=== PATIENT | male | born 1955 | race Caucasian/White ===

== ENCOUNTER 2019-08-15 17:52 | Outpatient (CLI) | payer MEDICARE, SELFPAY ==
--- NOTE | 2019-08-15 | XR_ITS ---
WS: [id number] LEFT HIP HISTORY: BACK PAIN ACUTE COMPARISON: None available. LEFT hip: No acute fracture or dislocation. Mild osteophytic ridging and sclerosis with irregularity along the superior acetabulum. No bone destruction. Visualized LEFT SI joint demonstrates mild narrowing. XR/XR hip LT 2-3V wo/w pel* [id number] IMPRESSION: 1. No hip fracture. 2. Mild osteoarthritis LEFT hip.
--- NOTE | 2019-08-15 | XR_ITS ---
WS: [id number] LUMBAR SPINE: 3 VIEWS TECHNIQUE: AP, lateral and L5-S1 spot. HISTORY: BACK PAIN ACUTE COMPARISON: 02/15/2016 Lumbar vertebra are normally aligned. Moderate disc space narrowing at L4-5 and mild at L5-S1. Small endplate osteophytes with no fracture. Pedicles are all identified. SI joints are symmetric bilaterally. No soft tissue abnormalities. XR/XR lumbar spine 2-3V* [id number] IMPRESSION: 1. Moderate degenerative disc disease at L4-5. 2. Mild multilevel spondylosis. 3. No change since 02/15/2016.
== END 2019-08-15 17:53 | disposition home or self-care (01) ==
PROVIDERS: Family Provider Family Medicine; Visit Provider Nurse Practitioner Family
DX: Z76.89 Persons encountering health services in other specified circumstances (principal)

== ENCOUNTER 2020-06-18 18:42 | Emergency (ER) | payer MEDICARE, SELFPAY ==
[2020-06-18 18:43] VITALS: BP 122/75; PULSE 72; RESP 18; TEMP 36.6; O2SAT 96; BMI 28.6
--- NOTE | 2020-06-18 19:00 | XR_ITS ---
WS: [id number] XR finger LT min 2V [id number] REASON FOR EXAM: finger injury, left 2nd digit FINDINGS: Joint spaces are intact. Minimally displaced fracture that extends obliquely through the tuft of the distal phalanx of the fir st finger. No other significant abnormality. XR/XR finger LT min 2V [id number] IMPRESSION: Fracture of the left index finger as above.
[2020-06-18] MEDS: lidocaine 1% INJ 20 mL INJECTION (19:04)
--- NOTE | 2020-06-18 19:20 | ED_ITS ---
HPI - Wound/Laceration General: Chief Complaint: Wound/Laceration Stated Complaint: LEFT INDEX FINGER LAC Time Seen by Provider: 06/18/20 19:00 Source: patient Mode of arrival: ambulatory Limitations: no limitations History of Present Illness: HPI narrative: 64 year old male presents to the ED with c/o left index finger pain s/p smash injury - reports smashed finger b/t 2 boards while repairing a deck - sustained laceration. States took oxycodone prior to arrival to help with pain, pressure dressing applied and bleeding controlled upon exam. Place: home Patient tetanus UTD: Yes Context: accidental Associated symptoms: Reports numbness; Denies chills, fever(s), nausea or vomiting Treatments prior to arrival: bandage Review of Systems General: Reports: 10 or more systems reviewed and unremarkable except in HPI and below Const: Denies: fever(s), chills or diaphoresis Eyes: Denies: blurry vision or eye redness ENMT: Denies: throat pain, dental pain or disequilibrium Card: Denies: chest pain, palpitations or irregular heart rhythm Resp: Denies: dyspnea, productive cough, non-productive cough or wheezing GI: Denies: abdominal pain, nausea or vomiting : Denies: difficulty urinating, dysuria or urinary urgency Musc: Reports: joint swelling (distal tip lft index finger); Denies: neck pain, back pain, joint pain or muscle cramps Skin/Breast: Reports: other (laceration distal tip left index finger); Denies: rash, pruritus, changing lesions or changes in skin color Neuro: Denies: headache(s), weakness in extremities or behavioral changes Psych: Denies: anxiety or depression Jewel/Lymph: Denies: easy bruising Physical Exam Const: COMMON NORMALS: no acute distress, patient oriented x3, healthy appearing and alert GENERAL APPEARANCE: cooperative, comfortable and well hydrated HENMT: COMMON NORMALS: normocephalic, Normal external nose present and moist oral mucous membranes HEAD & SCALP: normocephalic NOSE: Normal external n ose present Eye: COMMON NORMALS: Equal, round and reactive pupils present and EOMs intact bilaterally GENERAL EYE: appearance normal, both eyes and all related structures PUPIL: Yes Equal, round and reactive pupils present Neck/C-Spine: COMMON NORMALS: full ROM and no lymphadenopathy GENERAL: Yes normal visual inspection and Yes trachea midline CERVICAL SPINE: Yes cervical ROM normal Lymph: LYMPHATIC: no lymphadenopathy noted Chest: COMMONS NORMALS: normal inspection of the chest Resp: COMMON NORMALS: normal respiratory effort and clear to auscultation bilaterally AUSCULTATION: clear to auscultation bilaterally Cardio: COMMON NORMALS: regular rhythm, S1 normal heart sound present and S2 normal heart sound present RHYTHM: regular rhythm HEART SOUNDS: S1 normal heart sound present and S2 normal heart sound present GI: COMMON NORMALS: Soft to palpation and non-tender INSPECTION: Yes normal to inspection PALPATION: Yes Soft to palpation : COMMON NORMALS: Yes no CVA tenderness BLADDER/KIDNEY EXAM: Yes no CVA tenderness Back/Pelvis: COMMON NORMALS: no CVA tenderness and thoracic and lumbar spine normal to inspection Extremity: COMMON NORMALS: normal to inspection, full ROM and capillary refill normal GENERAL: Yes normal exam except as noted LEFT UPPER EXTREMITY: Yes hand & digits (left index, 2nd PIP) Left hand and digits: Yes inspection (laceration x 2 to the left index, 2nd finger, 1.0 cm ulnar side, distal PIP), Y es palpation (pain with palpation, ulnar side laceration involves paronychium), Yes ROM (present), Yes neurovascular exam (distally intact), Yes tendon exam (intact, full flexion/extension) and Yes other (2nd abrasion to the volar PIP, no bleeding, edges approximated) Neuro: COMMON NORMALS: patient oriented x3 and no focal motor deficits SENSORIUM/ORIENTATION: Yes alert Psych: COMMON NORMALS: mental status grossly normal, Normal thought process present and cooperative ACTIVITY/MOTOR BEHAVIOR: Yes appropriate eye contact THOUGHT PROCESS: Normal thought process present Skin: COMMON NORMALS: no rashes or lesions noted and turgor normal GENERAL SKIN EXAM: no rashes or lesions noted and turgor normal Procedures Laceration Laceration 1: Site: upper extremity (left index, 2nd finger) Side (If applicable): left Size (cm): 1.0 Description: linear, contaminated and other (contused) Depth: simple, single layer Pre-repair: wound explored, irrigated extensively, deep structures intact, extensive debridement and wound margins revised Skin layer closed with: nylon Size (cm): 5-0 Number of sutures: 2 Nerve Block Nerve Block 1: Time out performed: Yes Local Anesthetic: lidocaine 1% Amount of anesthesia used (mL): 10 Side: left Nerve Blocks: digital (left index, 2nd digit) Procedure Successful: Yes Patient Tolerated Procedure: well Complications: none Course Vital Signs: Vital signs: Vital Signs Temperature 97.8 F 06/18/20 18:43 Pulse Rate 72 06/18/20 18:43 Respiratory Rate 18 06/18/20 18:43 Blood Pressure 122/75 06/18/20 18:43 Pulse Oximetry 96 06/18/20 18:43 MDM - Wound/Laceration Imaging Data^: Xray Ortho: My impression: left hand second digit, distal tip, 3rd PIP, non-displaced fracture - radiology inturp pending Discharge Plan Discharge Patient Disposition: Home Clinical Impression: Crush fracture Laceration of finger nail bed Qualifiers: Encounter type: initial encounter Qualified Code(s): S61.319A - Laceration wit hout foreign body of unspecified finger with damage to nail, initial encounter Crush injury to finger Qualifiers: Encounter type: initial encounter Qualified Code(s): S67.10XA - Crushing injury of unspecified finger(s), initial encounter Condition: Stable Prescriptions: New Augmentin 875-125 mg tablet 1 tab PO BID 7 Days Qty: 14 RF: 0 Discharge Orders: Discharge ED (Routine); Ordered 06/18/20 Ordered By: Monie Singer Referrals: Sharri Victor MD [Primary Care Provider] - Discharge Diet: Usual diet Discharge Activity: Limit activity as instructed Patient Instructions: Crush Injury, Finger Fracture (ED), Finger Laceration (ED) Activity Restrictions/Additional Instructions: Return to the emergency department if you develop redness, increased pain or foul odor from the wound Take Augmentin until all gone, even if better Keep the left hand elevated to help with swelling, do not remove the dressing until follow-up with orthopedic surgery for wound recheck Take pain medication you have at home for pain, oxycodone patient financial services coordinator will be contacting you with an appointment to orthopedic surgery, please follow-up accordingly, sutures out in 7 to 10 days. Coding Level of Care Code ED Printer Assistant for Emily Fwarely Exam Comprehensive
[2020-06-18] MEDS: amoxicillin-clav 875-125 mg Tablet 1 TAB PO (20:00)
--- NOTE | 2020-06-19 09:52 | DCPLANNER ---
hotel office manager had message to schedule a follow up appointment for patient with ortho. hotel office manager called the ortho clinic, spoke with Ingrid, gave clinic patients information. hotel office manager was told that patients information would be printed and reviewed. Clinic will call patient with appointment information.
--- NOTE | 2020-06-20 15:16 | DCPLANNER ---
Patient has a follow up appointment scheduled for Saturday, June 27, 2020 at 1:[address] Nichols. Clinic will call patient with appointment information.
--- NOTE | 2020-07-27 14:24 | DCPLANNER ---
Patient had a follow up appointment scheduled for 06.27.20 with ortho - patient did attend appointment.
== END 2020-06-18 20:09 | disposition home or self-care (01) ==
PROVIDERS: Emergency Provider Nurse Practitioner Family; PCP Family Medicine
DX: S62.643A Nondisplaced fracture of proximal phalanx of left middle finger, initial encounter for closed fracture (principal); S61.319A Laceration without foreign body of unspecified finger with damage to nail, initial encounter; S67.10XA Crushing injury of unspecified finger(s), initial encounter; W23.0XXA Caught, crushed, jammed, or pinched between moving objects, initial encounter
CPT/HCPCS: 12001; 12345; 73140; 99281; 99283

== ENCOUNTER → 2020-06-27 13:35 | Outpatient (BNVA) | payer MEDICARE, SELFPAY | PROVIDERS: PCP Family Medicine; Visit Provider Specialist | DX: S62.631B Displaced fracture of distal phalanx of left index finger, initial encounter for open fracture (principal); W23.0XXA Caught, crushed, jammed, or pinched between moving objects, initial encounter | CPT/HCPCS: 73140 ==

== ENCOUNTER → 2020-07-23 15:34 | Outpatient (BNVA) | payer MEDICARE, SELFPAY | PROVIDERS: PCP Family Medicine; Visit Provider Podiatrist Foot & Ankle Surgery | DX: Q82.8 Other specified congenital malformations of skin (principal); M79.672 Pain in left foot; M20.41 Other hammer toe(s) (acquired), right foot; M20.42 Other hammer toe(s) (acquired), left foot; M21.621 Bunionette of right foot; M21.622 Bunionette of left foot | CPT/HCPCS: 73630 ==

== ENCOUNTER 2021-04-16 12:29 | Outpatient (CLI) | payer MEDICARE, SELFPAY ==
--- NOTE | 2021-04-16 12:40 | XR_ITS ---
WS: [id number] XR shoulder RT min 2V* [id number] REASON FOR EXAM: R SHOULDER PAIN/FALL FINDINGS: Moderate narrowing of the acromioclavicular joint space with subchondral sclerosis and osteophytic sp urring of the acromion and clavicle. Is soft tissue bone density projected over the superior aspect o f the acromioclavicular joint most likely related to the arthropathy in the acromioclavicular joint. Mild narrowing of the glenohumeral joint with mild subchondral sclerosis and spurring of the glenoid. Humeral head osteophytic spurring. No fracture or other focal bone abnormality. XR/XR shoulder RT min 2V* [id number] IMPRESSION: Osteoarthropathy with no acute abnormality.
--- NOTE | 2021-04-16 12:40 | XR_ITS ---
WS: [id number] XR cervical spine 3V* [id number] REASON FOR EXAM: NECK PAIN/FELL OUT OF TUB FINDINGS: Anterior plate and screw fixation with interbody fusion of C5-C7. Normal alignment. Surgical appliance intact and in proper position and alignment. Moderate anterior inferior osteophytes at C3-C4 and C4-C5 with no significant narrowing of the disc s paces. Normal facet joint alignment. Normal odontoid. XR/XR cervical spine 3V* [id number] IMPRESSION: Postoperative cervical spine with no acute abnormality.
== END 2021-04-16 12:30 | disposition home or self-care (01) ==
PROVIDERS: PCP Family Medicine; Visit Provider Family Medicine
DX: M54.2 Cervicalgia (principal); M19.011 Primary osteoarthritis, right shoulder; W18.09XA Striking against other object with subsequent fall, initial encounter
CPT/HCPCS: 72040; 73030

== ENCOUNTER 2021-05-18 10:32 | Emergency (ER) | payer MEDICARE, SELFPAY ==
[2021-05-18 10:54] VITALS: BP 136/89; PULSE 84; RESP 15; TEMP 36.9; O2SAT 95; BMI 29.0
--- NOTE | 2021-05-18 11:05 | CTR_ITS ---
PROCEDURE INFORMATION: Exam: CT Thoracic Spine Without Contrast Exam date and time: 05/18/2021 11:05 AM Age: 65 years old Clinical indication: Injury or trauma; Fall; Blunt trauma (contusions or hematomas) TECHNIQUE: Imaging protocol: Computed tomography images of the thoracic spine without contrast. Axial, coronal and sagittal reformatted images were created and reviewed. Radiation optimization: All CT scans at this facility use at least one of these dose optimization techniques: automated exposure control; mA and/or kV adjustment per patient size (includes targeted exams where dose is matched to clinical indication); or iterative reconstruction. COMPARISON: CT cervical spin wo con* [id number] 05/18/2021 11:28 AM RADIATION DOSE METRICS: Total DLP (mGy-cm): 2207.39 FINDINGS: Vertebrae: Osteopenia. Normal thoracic kyphosis. Alignment anatomic. No CT evidence of acute fracture, dislocation or subluxation. Vertebral body heights maintained. Discs/Spinal canal/Neural foramina: Mild multilevel spondylosis. Mild neural foraminal narrowing at T1-T2, T2-T3 and T3-T4 on the right. No significant spinal stenosis. Soft tissues: Unremarkable. CT/CT thoracic spin wo con* [id number]: 1[address] No [address] evidence of acute thoracic spine traumatic injury. 2. Additional findings, as above. Radiation Dose CTDIVOL = (mGy): DLP = 2207.39 (mGy-cm)
--- NOTE | 2021-05-18 11:06 | CTR_ITS ---
PROCEDURE INFORMATION: Exam: CT Cervical Spine Without Contrast Exam date and time: 05/18/2021 11:06 AM Age: 65 years old Clinical indication: Injury or trauma; Fall; Blunt trauma; Prior surgery; Surgery type: Neck TECHNIQUE: Imaging protocol: Computed tomography images of the cervical spine without contrast. Axial, coronal and sagittal reformatted images were created and reviewed. Radiation optimization: All CT scans at this facility use at least one of these dose optimization techniques: automated exposure control; mA and/or kV adjustment per patient size (includes targeted exams where dose is matched to clinical indication); or iterative reconstruction. COMPARISON: MRI Cervical Spine w/o* [id number] 06/05/2015 10:50 AM RADIATION DOSE METRICS: Total DLP (mGy-cm): 667.18 FINDINGS: Bones/joints: Osteopenia. Status post C5-C7 ACDF. No evidence of hardware complication. Straightening of the normal cervical lordosis. No CT evidence of acute fracture, dislocation or subluxation. Alignment anatomic. Vertebral body heights maintained. Discs/Spinal canal/Neural foramina: Mild multilevel degenerative changes, characterized by disc space narrowing, osteophytosis and uncovertebral and facet joint hypertrophy. Mild multilevel spinal canal and neural foraminal narrowing. Lungs: Grossly unremarkable. Soft tissues: Grossly unremarkable. CT/CT cervical spin wo con* [id number]: 1[address] No CT evidence of acute cervical spine traumatic injury. 2. Additional findings, as above. Radiation Dose CTDIVOL = (mGy): DLP = 667.18 (mGy-cm)
--- NOTE | 2021-05-18 11:06 | CTR_ITS ---
PROCEDURE INFORMATION: Exam: CT Head Without Contrast Exam date and time: 05/18/2021 11:06 AM Age: 65 years old Clinical indication: Injury or trauma; Fall; Blunt trauma (contusions or hematomas) TECHNIQUE: Imaging protocol: Computed tomography of the head without contrast. Axial, coronal and sagittal reformatted images were created and reviewed. Radiation optimization: All CT scans at this facility use at least one of these dose optimization techniques: automated exposure control; mA and/or kV adjustment per patient size (includes targeted exams where dose is matched to clinical indication); or iterative reconstruction. COMPARISON: MRI Cervical Spine w/o* [id number] 06/05/2015 10:50 AM RADIATION DOSE METRICS: Total DLP (mGy-cm): 886.83 FINDINGS: Brain: Patchy areas of hypoattenuation in the periventricular and subcortical white matter, consistent with chronic small vessel ischemic disease. No CT evidence of acute intracranial hemorrhage or acute territorial infarction. No significant mass effect or midline shift. Basal cisterns patent. Cerebral ventricles: Prominence of the cortical sulci, cisterns and ventricular system, consistent with cerebral and cerebellar volume loss. Paranasal sinuses: Minimal ethmoid mucosal thickening. No fluid levels. Mastoid air cells: Grossly unremarkable. Vasculature: Calcific atherosclerotic disease in the cavernous internal carotid arteries. Bones/joints: No acute osseous abnormality. Soft tissues: Grossly unremarkable. CT/CT head wo con* [id number]: 1[address] No CT evidence of acute intracranial pathology. 2. Additional findings, as above. Radiation Dose CTDIVOL = (mGy): DLP = 886.83 (mGy-cm)
[2021-05-18 11:07] VITALS: BP 136/89; PULSE 84; RESP 15; TEMP 36.9; O2SAT 95
--- NOTE | 2021-05-18 11:07 | W.ED.FALL ---
HPI - Fall General: Chief Complaint: Head Injury Stated Complaint: Injury to head from object Time Seen by Provider: 05/18/21 10:59 History of Present Illness: HPI Narrative: 65-year-old male presents due to headache and neck pain and upper back pain after head injury. States that he was using machinery to take through the ground and it lunged him forward and he bumped his head. Reports headache neck pain and upper back pain as above. Denies any focal weakness numbness or tingling. He is not blood thinners. Denies any vision change hearing change or vertigo. Denies any urinary fecal incontinence or retention. Denies saddle anesthesia. Review of Systems Narrative: - CONSTITUTIONAL: Denies weight loss, fever and chills. - HEENT: Denies changes in vision and hearing. - RESPIRATORY: Denies SOB and cough. - CV: Denies palpitations and CP. - GI: Denies abdominal pain, nausea, vomiting and diarrhea. - : Denies dysuria and urinary frequency. - MSK: Denies myalgia and joint pain. - SKIN: Denies rash and pruritus. - NEUROLOGICAL: Denies weakness, numbness and syncope. - PSYCHIATRIC: Denies suicidal ideation [facility] ED PFSH: Medical History Diabetes Hernia of abdominal wall Hypertension Surgical History H/O lumbosacral spine surgery Social History Smoking and tobacco status: never smoked Quit status (tobacco): considering quitting Second hand smoke exposure: No Smoking risk assessment/counseling performed?: No Alcohol intake: former Desire information about alcohol rehabilitation?: No Counseling given: No Desire information about substance/drug rehabilitation?: No Counseling given: No Adopted: No Caregiver/support person: No Lives independently: Yes Household members: spouse Housing: Manufactured/Mobile home Marital status: Number of children: 2 Number of grandchildren: 0 Highest education level completed: 11th Grade service: No Current occupational status: employed Current occupation: [employer] Current occupational exposures/hazards: Yes Pets and animals: Yes History of recent travel: No Leisure activites: sports, hunting, fishing and reading Sexually active: Yes Current gender identity: Male Yusra/Scientology: Evangelical Special yusra needs: No Agree to transfusion: Yes Financial difficulty paying for basics: Decline to Answer Physical Exam Narrative: EXAM NARRATIVE: - GENERAL: Alert and oriented x 3. No acute distress. Well-nourished. - EYES: EOMI. Anicteric. - HENT: C-spine tenderness, and collar. Moist mucous membranes. No scleral icterus. No cervical lymphadenopathy. 3 cm posterior scalp laceration. - LUNGS: Clear to auscultation bilaterally. No accessory muscle use. Equal lung sounds bilaterally. No respiratory distress. - CARDIOVASCULAR: Regular rate and rhythm. No murmur. No JVD. - ABDOMEN: Soft, non-tender and non-distended. Negative CVA tenderness bilaterally, no rebound or guarding, negative Allen sign. No palpable masses. - EXTREMITIES: No edema. Non-tender. -Back: Midline upper thoracic tenderness to palpation without step-off. Lower extremity strength sensation reflexes intact. No saddle anesthesia. - SKIN: No rashes or lesions. Warm. - NEUROLOGIC: No meningismus or focal neurological deficits. CN II-XII grossly intact. - PSYCHIATRIC: Cooperative. Appropriate mood and affect. Course Vital Signs: Vital signs: Vital Signs Temperature 98.5 F 05/18/21 11:07 Pulse Rate 84 05/18/21 11:07 Respiratory Rate 15 05/18/21 11:07 Blood Pressure 136/89 05/18/21 11:07 Pulse Oximetry 95 05/18/21 11:07 MDM - Fall MDM Narrative: Medical decision making narrative: Six 5-year-old male presents with 2 head injury headache and neck and upper back pain. Nonfocal neurologic exam. CT scan does not reveal intracranial hemorrhage fracture dislocation. No other focal tenderness except as above. Tetanus status was checked and is up-to-date. There is a posterior scalp laceration which was repaired using [place]. Wound care instructions provided. At this time I believe patient would be safe for discharge and outpatient follow-up. Return precautions provided. Plan was reviewed with the patient who expressed understanding. Questions answered. Patient will follow up with PCP. Patient discharged in stable condition. Discharge Plan Discharge Prescriptions: No Action No Known Home Medications RF: 0 Coding Level of Care Code ED Sulfur Burner for Emily Bernal
--- NOTE | 2021-05-18 11:25 | PC.NURSE ---
report received from andres souza [facility]
--- NOTE | 2021-05-18 11:34 | PC.NURSE ---
while at doorway pt and stretcher are not in room.
[2021-05-18 13:28] VITALS: BP 122/78; PULSE 82; RESP 16; O2SAT 96
== END 2021-05-18 13:30 | disposition home or self-care (01) ==
PROVIDERS: Emergency Provider Emergency Medicine; PCP Family Medicine
DX: S09.90XA Unspecified injury of head, initial encounter (principal); M54.2 Cervicalgia; M54.6 Pain in thoracic spine; E11.9 Type 2 diabetes mellitus without complications; I10 Essential (primary) hypertension; W22.8XXA Striking against or struck by other objects, initial encounter
CPT/HCPCS: 70450; 72125; 72128; 99283

== ENCOUNTER 2022-02-10 09:03 | Outpatient (CLI) | payer MEDICARE, SELFPAY ==
--- NOTE | 2022-02-10 09:10 | XR_ITS ---
WS: [id number] RIGHT SHOULDER: 3 VIEW(S) TECHNIQUE: Internal and external rotation with Y view. HISTORY: PAIN IN R SHOULDER COMPARISON: 04/16/2021 Moderate narrowing of the AC joint with hypertrophic osteophytes and subchondral sclerosis. Osteophyt es measure 4.4 mm extending towards the rotator cuff. There similar to the prior study. Mild narrowing of the glenohumeral joint. No fractures. XR/XR shoulder RT min 2V* [id number] IMPRESSION: 1. Moderate AC joint arthritis similar to the prior study. 2. No fracture.
== END 2022-02-10 09:04 | disposition home or self-care (01) ==
PROVIDERS: PCP Family Medicine; Visit Provider Family Medicine
DX: M13.811 Other specified arthritis, right shoulder (principal)
CPT/HCPCS: 73030

== ENCOUNTER 2022-03-26 07:13 | Outpatient (CLI) | payer MEDICARE, SELFPAY ==
--- NOTE | 2022-03-26 | MR_ITS ---
WS: [id number] MRI RIGHT SHOULDER HISTORY: RT SHOULDER PAIN COMPARISON: 02/10/2022 shoulder radiograph TECHNIQUE: Multiplanar sequences of the shoulder joint are submitted. Moderate to severe osteoarthritis involving the AC joint. Hypertrophic bone formation and osteophytes at the clavicle and acromion. Osteophytes encroach towards the supraspinatus myotendinous insertion with deformity of the muscle. Fluid along the AC ligament and a very small amount of fluid in the sub acromial bursa. No significant subacromial impingement. No os acromion. Normal biceps tendon. No rotator cuff tear identified. No muscle atrophy or edema. Very minimal tendinopathy in the distal supraspinatus tendon and also at the insertion site of the subscapularis tendon. Mild thickening of t he subscapularis tendon at its insertion to the humeral head. No definite tear. Humeral head normally seated at the glenoid. Very minimal degenerative changes involve the glenoid. Subchondral cyst infer iorly in the glenoid. Mild fraying along the surfaces of the labrum but no tear. Focal increased signal measuring 6 mm involving the cartilage of the superior medial humeral head jus t above the labrum. MR/MR shoulder RT wo con* [id number] IMPRESSION: 1. Moderate to severe osteoarthritis at the AC joint with osteophyte encroachm ent upon the supraspinatus at the myotendinous insertion site. 2. Marked narrowing of the AC joint with fluid along the AC ligament. 3. Mild tendinopathy distal supraspinatus and subscapularis tendons with no te ar identified. 4. Degenerative changes and subchondral cyst involving the labrum. 5. Cartilage defect involving the superior medial humeral head.
== END 2022-03-26 07:14 | disposition home or self-care (01) ==
LOC: RAD 07:14
PROVIDERS: PCP Family Medicine; Visit Provider Family Medicine
DX: M19.011 Primary osteoarthritis, right shoulder (principal); M25.711 Osteophyte, right shoulder
CPT/HCPCS: 73221

== ENCOUNTER 2022-05-27 16:11 | Emergency (ER) | payer MEDICARE, SELFPAY ==
[2022-05-27 16:40] VITALS: BP 116/83; PULSE 89; RESP 16; TEMP 36.3; O2SAT 94
--- NOTE | 2022-05-27 17:21 | ED_ITS ---
HPI - Back Pain/Injury General: Chief Complaint: Back Pain/Injury Stated Complaint: Back pain Time Seen by Provider: 05/27/22 17:19 History of Present Illness: 66-year-old male patient comes in today for complaints of low back pain. Patient reports last week he had been moving some cabinets and started having increasing back pain. Patient reports that he had rested for 4 days used his as needed medications for pain which is hydrocodone. Patient reports he does not tolerate NSAIDs because they make him sick to his stomach. Patient also does not like using oxycodone for the same reason. Patient does not routinely take hydrocodone. Patient states after 4 days he went to get up but had increased back pain. Patient had to come in tonight by EMS due to the inability to walk without severe distress and discomfort. Patient denies any loss of bowel or bladder control. Patient reports no fever. EMS reportedly had given patient 30 mg of ketorolac IV. Associated symptoms: Deny fever(s), nausea or vomiting Review of Systems Const: Denies: fever(s) Card: Denies: chest pain Resp: Denies: dyspnea GI: Denies: nausea, vomiting, diarrhea or constipation : Denies: difficulty urinating Musc: Reports: back pain Skin/Breast: Denies: rash PFSH ED PFSH: Medical History Diabetes Hernia of abdominal wall Hypertension Surgical History H/O lumbosacral spine surgery Social History Smoking and tobacco status: never smoked Quit status (tobacco): considering quitting Second hand smoke exposure: No Smoking risk assessment/counseling performed?: No Alcohol intake: former Desire information about alcohol rehabilitation?: No Counseling given: No Desire information about substance/drug rehabilitation?: No Counseling given: No Adopted: No Caregiver/support person: No Lives independently: Yes Household members: spouse Housing: Manufactured/Mobile home Marital status: Number of children: 2 Number of grandchildren: 0 Highest education level completed: 11th Grade service: No Current occupational status: employed Current occupation: [employer] Current occupational exposures/hazards: Yes Pets and animals: Yes History of recent travel: No Leisure activites: sports, hunting, fishing and reading Sexually active: Yes Current gender identity: Male Yusra/Latter-Day: Yarsanism Special yusra needs: No Agree to transfusion: Yes Financial difficulty paying for basics: Decline to Answer Physical Exam Const: COMMON NORMALS: alert HENMT: COMMON NORMALS: normocephalic HEAD & SCALP: normocephalic Neck/C-Spine: COMMON NORMALS: full ROM Resp: COMMON NORMALS: normal respiratory effort and clear to auscultation bilaterally AUSCULTATION: clear to auscultation bilaterally Cardio: COMMON NORMALS: regular rate and regular rhythm RATE: regular rate RHYTHM: regular rhythm GI: COMMON NORMALS: Soft to palpation PALPATION: Yes Soft to palpation and No Tenderness to palpation present (GI) : COMMON NORMALS: Yes no CVA tenderness BLADDER/KIDNEY EXAM: Yes no CVA tenderness Back/Pelvis: COMMON NORMALS: no CVA tenderness THORACIC SPINE/UPPER BACK: No thoracic spinal tenderness LUMBAR SPINE/LOWER BACK: No lumbar spinal tenderness Extremity: COMMON NORMALS: normal to inspection and no pedal edema Neuro: SENSORIUM/ORIENTATION: Yes alert Psych: COMMON NORMALS: cooperative Skin: COMMON NORMALS: turgor normal GENERAL SKIN EXAM: turgor normal Course Vital Signs: Vital signs: Vital Signs Temperature 97.4 F L 05/27/22 16:40 Pulse Rate 89 05/27/22 16:40 Respiratory Rate 16 05/27/22 17:47 Blood Pressure 116/83 05/27/22 16:40 Pulse Oximetry 94 05/27/22 16:40 MDM - Back Pain/Injury Medical Decision Making 66-year-old male patient comes in today with complaints of low back pain and difficulty with standing and walking. Patient has increased pain with movement and ambulation. On exam patient has some muscle tenderness but no direct spine tenderness. Vital signs are normal. Differential diagnosis includes intervertebral disc disease, facet arthropathy, osteoarthritis, discitis. CT was performed and noted degenerative changes but no signs of infection or significant impingement on the spinal cord. Patient was given orphenadrine and fentanyl along with dexamethasone in the ER for his pain. Patient had been given Toradol in route to the ER by EMS. Patient did have improvement of symptoms and was able to ambulate with minimal discomfort. We will continue patient on Celebrex and prednisone. Patient does have hydrocodone at home for severe pain. Recommend follow-up with primary care for further instruction and evaluation return to ER for worsening symptoms. Labs Radiology Impressions Lumbar Spine CT 05/27/22 17:39 IMPRESSION: No acute findings. Degenerative changes of the lumbar spine as described in the body of the report. Discharge Plan Discharge Patient Disposition: Home Clinical Impression: Degenerated intervertebral disc Qualifiers: Spinal region: lumbar Qualified Code(s): M51.36 - Other intervertebral disc degeneration, lumbar region Condition: Stable Prescriptions: New celecoxib 100 mg capsule 100 mg PO BID Qty: 30 0RF prednisone 20 mg tablet 20 mg PO BID 5 Days Qty: 10 0RF Discharge Orders: Discharge ED (Routine); Ordered 05/27/22 Ordered By: Jet Garcia Referrals: Sharri Victor MD [Primary Care Provider] - Discharge Diet: Usual diet Discharge Activity: Increase activity as tolerated Patient Instructions: Back Pain (ED), Opioid Safety, Pain Management Activity Restrictions/Additional Instructions: Try to maintain activity as much as possible. Use a walker or cane for ambulation. Take Celebrex 100 mg twice a day for pain and inflammation routinely. Use prednisone to 20 mg twice a day for further inflammation control. Follow-up with primary care in 1 week for recheck. Return to emergency room for fever greater than 100.4, uncontrolled back pain, loss of bowel or bladder control, or new concerns. Coding Level of Care Code ED Design Leader for Emily Fwd Exam Comprehensive
--- NOTE | 2022-05-27 17:39 | CTR_ITS ---
PROCEDURE INFORMATION: Exam: CT Lumbar Spine Without Contrast Exam date and time: 05/27/2022 6:23 PM Age: 66 years old Clinical indication: Prior surgery; Surgery type: Lumbar unspecified per emr. Patient HX: C/O of worsening low back pain. History of chronic back pain. ; Additional info: Worsening low back pain, no injury TECHNIQUE: Imaging protocol: Computed tomography of the lumbar spine without contrast. Radiation optimization: All CT scans at this facility use at least one of these dose optimization techniques: automated exposure control; mA and/or kV adjustment per patient size (includes targeted exams where dose is matched to clinical indication); or iterative reconstruction. COMPARISON: CR XR lumbar spine 2-3V* [id number] 08/15/2019 5:52 PM RADIATION DOSE METRICS: Total DLP (mGy-cm): 931.67 FINDINGS: Bones/joints: No acute fracture. No spinal malalignment. Moderate endplate degenerative changes of the mid and lower lumbar spine with corresponding mild facet arthropathy at these levels. No significant disc protrusion. No severe spinal canal stenosis. Soft tissues: Unremarkable. CT/CT lumbar spine wo con* [id number] IMPRESSION: No acute findings. Degenerative changes of the lumbar spine as described in the body of the report.
[2022-05-27] MEDS: dexamethasone 10 mg/mL INJ IVP (17:46)
[2022-05-27 17:47] VITALS: RESP 16
[2022-05-27] MEDS: orphenadrine 30 mg/mL Inj 2 mL 60 MG IVP (17:47)
[2022-05-27] MEDS: fentaNYL 50 mcg/mL INJ 2mL 100 MCG IVP (17:47)
--- NOTE | 2022-05-27 19:23 | PC.NURSE ---
REPORT GIVEN TO ALICIA SEARS RN ASSUMED CARE.
== END 2022-05-27 19:36 | disposition home or self-care (01) ==
PROVIDERS: Emergency Provider Nurse Practitioner Family; PCP Family Medicine
DX: M51.36 Other intervertebral disc degeneration, lumbar region (principal); E11.9 Type 2 diabetes mellitus without complications; I10 Essential (primary) hypertension
CPT/HCPCS: 72131; 96374; 96375; 99284; J1100; J2360; J3010

== ENCOUNTER 2022-12-18 12:58 | Outpatient (CLI) | payer MEDICARE, SELFPAY ==
--- NOTE | 2022-12-18 13:07 | XR_ITS ---
WS: [id number] XR lumbar spine 2-3V* [id number] REASON FOR EXAM: UNSPECIFIED FALL, INITIAL ENCOUNTER FINDINGS: Mild straightening of the normal lordosis. No significant scoliosis. No significant vertebral body abnormality. Specifically no compression deformity. Significant narrowing of the L4-L5 disc space. Moderate narrowing of the L5-S1 disc space. Moderate endplate sclerosis at L4-L5 and L5-S1. Significant anterior osteophytosis L3-S1. No spondylolysis or significant spondylolisthesis. Mild degenerative changes in the facet joints L2-S1. XR/XR lumbar spine 2-3V* [id number] IMPRESSION: No acute abnormality. Degenerative spondylosis as above. Mild progression of degenerative spondylosis in the lower lumbar spine compared to 08/15/2019.
== END 2022-12-18 12:59 | disposition home or self-care (01) ==
LOC: RAD 13:01
PROVIDERS: PCP Family Medicine; Visit Provider Nurse Practitioner Family
DX: M53.3 Sacrococcygeal disorders, not elsewhere classified (principal); M47.817 Spondylosis without myelopathy or radiculopathy, lumbosacral region
CPT/HCPCS: 72100

== ENCOUNTER → 2022-12-23 15:09 | Outpatient (BNVA) | payer MEDICARE, SELFPAY | PROVIDERS: PCP Family Medicine; Visit Provider Podiatrist Foot & Ankle Surgery | DX: M20.41 Other hammer toe(s) (acquired), right foot (principal); M20.42 Other hammer toe(s) (acquired), left foot; M21.621 Bunionette of right foot; M21.622 Bunionette of left foot; Q82.8 Other specified congenital malformations of skin | CPT/HCPCS: 17110 ==

== ENCOUNTER → 2023-02-03 13:45 | Outpatient (BNVA) | payer MEDICARE, SELFPAY | PROVIDERS: PCP Family Medicine; Visit Provider Podiatrist Foot & Ankle Surgery | DX: M20.41 Other hammer toe(s) (acquired), right foot (principal); M20.42 Other hammer toe(s) (acquired), left foot; M21.621 Bunionette of right foot; M21.622 Bunionette of left foot; Q82.8 Other specified congenital malformations of skin | CPT/HCPCS: 99213 ==

== ENCOUNTER → 2024-06-08 09:14 | Outpatient (BNVA) | payer MEDICARE, SELFPAY | PROVIDERS: PCP Family Medicine; Visit Provider Podiatrist Foot & Ankle Surgery | DX: M20.41 Other hammer toe(s) (acquired), right foot (principal); M20.42 Other hammer toe(s) (acquired), left foot; M21.621 Bunionette of right foot; M21.622 Bunionette of left foot; Q82.8 Other specified congenital malformations of skin; B35.1 Tinea unguium; Z79.84 Long term (current) use of oral hypoglycemic drugs | CPT/HCPCS: 17110; 99213 ==

== ENCOUNTER → 2024-08-03 09:38 | Outpatient (BNVA) | payer MEDICARE, SELFPAY | PROVIDERS: PCP Family Medicine; Visit Provider Podiatrist Foot & Ankle Surgery | DX: M20.41 Other hammer toe(s) (acquired), right foot (principal); M20.42 Other hammer toe(s) (acquired), left foot; M21.621 Bunionette of right foot; M21.622 Bunionette of left foot; Q82.8 Other specified congenital malformations of skin; B35.1 Tinea unguium | CPT/HCPCS: 17110 ==

== ENCOUNTER → 2024-10-05 08:33 | Outpatient (BNVA) | payer MEDICARE, SELFPAY | PROVIDERS: PCP Family Medicine; Visit Provider Podiatrist Foot & Ankle Surgery | DX: M20.41 Other hammer toe(s) (acquired), right foot (principal); M20.42 Other hammer toe(s) (acquired), left foot; M21.621 Bunionette of right foot; M21.622 Bunionette of left foot; B35.1 Tinea unguium; E11.69 Type 2 diabetes mellitus with other specified complication; Z79.84 Long term (current) use of oral hypoglycemic drugs | CPT/HCPCS: 99213 ==

== ENCOUNTER → 2024-11-24 08:38 | Outpatient (BNVA) | payer MEDICARE, SELFPAY | PROVIDERS: PCP Family Medicine; Visit Provider Family Medicine | DX: E11.9 Type 2 diabetes mellitus without complications (principal); I10 Essential (primary) hypertension | CPT/HCPCS: 80053; 80061; 82607; 83036 ==

== ENCOUNTER → 2025-06-26 08:54 | Outpatient (BNVA) | payer MEDICARE, SELFPAY | PROVIDERS: PCP Family Medicine; Visit Provider Family Medicine | DX: I10 Essential (primary) hypertension (principal); E11.9 Type 2 diabetes mellitus without complications | CPT/HCPCS: 80053; 80061; 82607; 83036 ==